=== PATIENT | female | born 1985 | race Asian ===

== ENCOUNTER 2019-10-05 21:53 | Outpatient (CLI) | payer OTHER ==
--- NOTE | 2019-10-05 22:56 | IPNPDOC ---
Text Note Date of Service The patient was seen on 10/05/19. NOTE Patient is a 34 yo G1 @ 40wks gestation presents with concern for contractions. denies lof/vb. +FM vitals: normal NAD abd: gravid, soft, nt, cephalic by jimmy's ce: 1cm (per nursing check) fht: 135/mod meir/pos accel/no decel toco: ctx q 7mins a/p patient in early labor. return precautions given. f/u with regular clinic otherwise. DO ANDREW Alfaro LUAT N. DO Oct 05, 2019 22:56
[2019-10-06] MEDS ORDERED: PRENTAB9 PO (15:16)
[2019-10-06] MEDS ORDERED: MAPA500T2 PO (15:16)
[2019-10-07] MEDS ORDERED: DOCU100C16 PO (17:50)
== END 2019-10-06 00:52 | disposition home or self-care (01) ==
LOC: M LDO 21:53
PROVIDERS: ATTEND Obstetrics & Gynecology
DX: O62.0 Primary inadequate contractions (principal); Z3A.40 40 weeks gestation of pregnancy; Z79.899 Other long term (current) drug therapy

== ENCOUNTER 2019-10-06 00:54 | Outpatient (CLI) | payer OTHER ==
[~2019-10-06] VITALS: Ht 162.6 cm; Wt 64.0 kg
[2019-10-06] MEDS ORDERED: PROMETHAZINE INJ 25 MG/ML VIAL (J2550) IV ONE (01:00)
[2019-10-06] MEDS ORDERED: LR 1,000 ML IV ONE (01:00)
[2019-10-06] MEDS ORDERED: LR 1,000 ML IV SCH (01:00)
[2019-10-06] MEDS ORDERED: MORPHINE 10 MG/ML 1ML VIAL (J2270) IV ONE (01:00)
[2019-10-06] MEDS ORDERED: MORPHINE 10 MG/ML 1ML VIAL (J2270) IM ONE (01:00)
--- NOTE | 2019-10-06 01:24 | IPNPDOC ---
Text Note Date of Service The patient was seen on 10/06/19. NOTE patient is a 34 yo G1 @ 40+1wks gestation presents with painful contractions. she was seen earlier and discharge. Her contractions continues to be painful. vitals: normal NAD abd: gravid, soft, nt fht: 135/mod meir/pos accel/no decel toco: ctx q 5-6mins ce: unchanged per nursing check a/p patient not in labor. patient offered iv pain med therapy then recheck. patient desires to have pain medication. Give Morphine and phenargan. recheck once patient wakes up. LYRIC MORALES DO Oct 06, 2019 01:24
--- NOTE | 2019-10-06 06:33 | IPNPDOC ---
Text Note Date of Service The patient was seen on 10/06/19. NOTE patient received morphine, phenergan and IV fluids. She rested. Her contractions are not as painful as before vitals: normal nad fht: 125/mod meir/pos accel/no decel toco: ctx q 7-8mins ce: 3cm per nursing check a/p patient in early labor. Discussed with patient s/s of active labor and when to come back. d/c home. Angelina, VS,Eden, I+O VS, Eden, I+O Vital Signs Date Time Temp Pulse Resp B/P (MAP) Pulse Ox O2 Delivery O2 Flow Rate FiO2 10/06/19 01:48 18 LYRIC MORALES DO Oct 06, 2019 06:33
[2019-10-06] MEDS ORDERED: PRENTAB9 PO (15:16)
[2019-10-06] MEDS ORDERED: MAPA500T2 PO ×2 (15:16)
[2019-10-07] MEDS ORDERED: DOCU100C16 PO (17:50)
== END 2019-10-06 06:40 | disposition home or self-care (01) ==
LOC: M LDO 00:54
PROVIDERS: ATTEND Obstetrics & Gynecology
DX: O62.0 Primary inadequate contractions (principal); Z3A.40 40 weeks gestation of pregnancy
CPT/HCPCS: J2270 ×2

== ENCOUNTER 2019-10-06 14:24 | Inpatient (IN) | payer OTHER ==
[~2019-10-06] VITALS: Ht 162.6 cm; Wt 96.5 kg
[2019-10-06] VITALS (8 sets, daily range): BP systolic 104–190; BP diastolic 64–102
[2019-10-06] MEDS ORDERED: MAPA500T2 PO ×2 (15:16)
[2019-10-06] MEDS ORDERED: PRENTAB9 PO (15:16)
[2019-10-06] MEDS ORDERED: LACTATED RINGER'S 1000 ML IV STA (15:34)
[2019-10-06] MEDS ORDERED: OXYTOCIN DRIP 30 UNITS in IV 1 EA IV SCH ×2 (15:45→21:43)
[2019-10-06] MEDS ORDERED: LR 1,000 ML IV SCH (15:45)
--- NOTE | 2019-10-06 16:08 | HPEPDOC ---
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 pertinent history Past Medical History Medical History denies Surgical History: Denies/None Family History Significant Family History: No pertinent family hx Social History Marital Status: * Smoker: non-smoker Alcohol: Denies Drugs: denies Abuse Violence Screening Have you been hit/kicked/slapp: No Have you been sexually assault: No Imunizations Tdap status: current Influenza Status: current Allergies Coded Allergies: No Known Allergies (Unverified , 10/06/19) Medications Scheduled No.137/Iron/Folic Acd ( Vitamin Tablet) 1 Each Tablet, 1 TAB PO DAILY Miscellaneous Medications Acetaminophen (Mapap) 500 Mg Tablet, 1,000 MG PO Physical Examination Physical Examination GENERAL: Alert and oriented times three. BREAST: . ABDOMEN: Gravid and non-tender to touch. FETUS: Is vertex (VTX) by sterile vaginal examination (SVE), fetus is vertex (VTX) by Loco. HEART RATE: Regular rate and rhythm. LUNGS: Clear to auscultation (CTA). EXTREMITIES: No edema/erythema/tenderness EFW: 3600gm speculum exam: bloody show, clear fluid in vault, grossly ruptured ce: 4/80/0, forebag palpated. Laboratory Data 24H LABS Laboratory Tests 2 10/06/19 15:39: Serology Scanned Report Hepatitis B Testing Pertinent Laboratoy Data Blood Type: B+ RBC Antibody Screen: Negative HIV: Negative Hepatitis B: Negative Rapid Plasma Reagin: Nonreactive Rubella: Immune Chlamydia/Gonorrhea: Negative Group B Streptococcus: Negative Glucose Tolerance Test: 92 Anatomy Ultrasound Ultrasound Date: Oct 06, 2019 Placenta Location: Posterior Normal Anatomy: Yes Placenta Previa: No Vaginal Examination Dilation: 4 cm Effacement: 80% Station: -1, 0 Cervical Consistency: Soft Cervical Position: Middle Presentation: Cephalic presentation Assessment Heart Rate (FHR): 140 Variability: Moderate Accelerations: Positive Decelerations: None Tocometer Contractions: Yes Frequency: every 3-7 min. Assessment/Plan Assessment Patient is a 34yo G1 @ 40+1wks gestation with SROM. Admit to L&D. Discussed with patient possible need for augmentation with pitocin as needed. Reviewed with patient external and internal monitoring as indicated. Risk of infection needing iv antibiotics, bleeding needing blood transfusion, emergent section for and maternal indication, use of forceps or vacuum to assist in vaginal delivery in an emergency and associated risks, and episiotomy explained. Plan Admit and orient. 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 Diet: clear start pit as needed for augmentation of labor Group B Streptococcus (GBS) negative Labs and intravenous (IV) per unit protocol. Counseled on Pitocin and induction of labor (IOL). pelvis adequate for trial of labor anesthesia consult LYRIC MORALES DO Oct 06, 2019 15:52
[2019-10-06] MEDS ORDERED: PROMETHAZINE INJ 25 MG/ML VIAL (J2550) IV ONE (16:15)
[2019-10-06] MEDS ORDERED: MORPHINE 10 MG/ML 1ML VIAL (J2270) IV ONE (16:15)
[2019-10-06] MEDS ORDERED: MORPHINE 10 MG/ML 1ML VIAL (J2270) IM ONE (16:15)
[2019-10-06 16:36] LABS: HEMATOCRIT 38.4 % (36.0-47.0); HEMOGLOBIN 12.6 g/dl (12.0-15.5); MEAN CORPUSCULAR HEMOGLOBIN 29.7 pg (27.0-33.0); MEAN CORPUSCULAR HGB CONC 32.8 g/dl (32.0-36.5); MEAN CORPUSCULAR VOLUME 90.6 fl (80.0-96.0); PLATELET COUNT, AUTOMATED 187 10^3/uL (150-450); RED BLOOD COUNT 4.24 10^6/uL (4.00-5.40); WHITE BLOOD COUNT 12.7 10^3/uL (4.0-10.0)
[2019-10-06] MEDS ORDERED: FENTANYL 2MCG/ML ROPIVACAINE 0.2% IN 0.9% NACL 100ML IVBAG As Ordered ONE (18:47)
[2019-10-06] MEDS ORDERED: ONDANSETRON 4MG/2ML VIAL (J2405) IV PRN (19:19)
[2019-10-06] MEDS ORDERED: REFRIGERATOR IV KEYS XX PRN (19:19)
[2019-10-06] MEDS ORDERED: ePHEDrine SULFATE 25 MG/5 ML(5MG/ML) SYRINGE IV PRN (19:19)
[2019-10-06] MEDS ORDERED: EPIDURAL COMMENT XX SCH (19:19)
[2019-10-06] MEDS ORDERED: NALOXONE INJ 0.4 MG/1 ML VIAL (J2310) IV PRN (19:19)
[2019-10-06] MEDS ORDERED: diphenhydrAMINE INJ 50MG/ML VIAL (J1200) IV PRN (19:19)
[2019-10-06] MEDS ORDERED: FENTANYL/ROPIVACAINE/NACL BAG 100 ML EPIDURAL SCH (19:19)
[2019-10-06] MEDS ORDERED: EPIDURAL/PCA KEYS XX PRN (19:19)
--- NOTE | 2019-10-06 20:43 | IPNPDOC ---
Text Note Date of Service The patient was seen on 10/06/19. NOTE patient with epidural. feeling pressure vitals: normal fht: 135/mod meir/no accel/early decels toco: ctx q 2mins ce: c/c/+2, LOP a/p patient in second stage of labor. attempt to rotate baby head to OA position unsuccessful. continue with pushing. reassess in 1 hr. Angelina, VS,Eden, I+O VS, Fishbone, I+O Laboratory Tests 10/06/19 16:23 Vital Signs Date Time Temp Pulse Resp B/P (MAP) Pulse Ox O2 Delivery O2 Flow Rate FiO2 10/06/19 18:36 81 122/77 (92) 10/06/19 16:44 18 10/06/19 14:41 96.9 LYRIC MORALES DO Oct 06, 2019 20:43
[2019-10-06] MEDS ORDERED: ACETAMINOPHEN TAB 650MG DOSE (2X325MG) PO PRN (21:45)
[2019-10-06] MEDS ORDERED: RHOGAM 300 MCG (1500 IU) INJ (J2790) IM SCH (21:45)
[2019-10-06] MEDS ORDERED: MEASLES,MUMPS,RUBELLA VACCINE INJ (MMR-II) (90707) SC SCH (21:45)
[2019-10-06] MEDS ORDERED: DOCUSATE SODIUM 100 MG CAP PO PRN (21:45)
[2019-10-06] MEDS ORDERED: DIBUCAINE 1% OINTMENT 30GM TOP PRN (21:45)
--- NOTE | 2019-10-06 21:54 | DNPDOC ---
[facility] Delivery Note Delivery Note DATE OF DELIVERY: 06/10/2019 PREDELIVERY DIAGNOSIS: 40+1/7 weeks' gestation and labor. POST DELIVERY DIAGNOSIS: Delivered. PROCEDURE: Spontaneous vaginal delivery UPWARD BOUND DIRECTOR: Dr. Mita Alfaro DO ANESTHESIA: epidural ESTIMATED BLOOD LOSS: 300 mL. FINDINGS: 7 lbs 9oz, 3440gm, male infant, Score 7/9, nuchal cord times and bandolero cord x 1, compound right hand DELIVERY SUMMARY: With good maternal effort baby delivered OA, restituted ROT, loose nuchal cord reduced. Right compound hand delivered, then anterior shoulder, posterior shoulder delivered. body followed with ease. baby placed on maternal abdomen. Cord allowed to stop pulsating. Cord clamped x 2 and cut by mother of baby. Pitocin bolus started. Cord blood collected per routine. Placenta delivered spontaneously. Inspection revealed left sulcal tear extending to second degree perineal tear. Lidocaine plain used at perineum due to inadequate coverage with epidural. laceration repaired with 2-0 and 3-0 vicryl. baby and mother bonding when I left the room. EBL 300cc. DO ANDREW Alfaro LUAT N. DO Oct 06, 2019 21:54
[2019-10-06] MEDS: IBUPROFEN 600 MG TAB PO PRN (22:17)
[2019-10-07] MEDS: IBUPROFEN 600 MG TAB PO PRN ×2 (05:32→16:04)
[2019-10-07 06:00] VITALS: BP 101/58
--- NOTE | 2019-10-07 06:35 | IPNPDOC ---
Progress Note Date of Service: Oct 07, 2019 Day#: 1 Progress Note SUBJECT: patient is a 34 yo s/p , ppd #1. She has been ambulating, voiding spontaneously without issue and tolerating regular diet. Breast feeding without issue. Reports lochia is light. spouse is deployed. undecided on contraceptive at this point. OBJECTIVE: VITAL SIGNS: Within normal limits, afebrile. Alert and oriented times three. Abdomen: Fundus firm at U-2. Soft, NTTP. LE: neg edema/erythema/tenderness A/P ppd #1, doing well. encourage bf and ambulating. routine ppc. anticipate d/c ppd #2. VS, I&O, 24H, Fishbone Vital Signs/I&O Vital Signs Date Time Temp Pulse Resp B/P (MAP) Pulse Ox O2 Delivery O2 Flow Rate FiO2 10/07/19 06:00 97.2 75 20 101/58 (72) 97 Room Air I&O- Last 24 Hours up to 6 AM 10/07/19 06:00 Intake Total 390 ml Output Total 1400 ml Balance -1010 ml Laboratory Data 24H LABS Laboratory Tests 2 10/06/19 15:39: Serology Scanned Report Hepatitis B Testing 10/06/19 16:23: Nucleated Red Blood Cells % (auto) 0.0 CBC/BMP Laboratory Tests 10/06/19 16:23 LYRIC MORALES DO Oct 07, 2019 06:35
[2019-10-07] MEDS: PRENATAL VITAMINS CHEWABLE TABLET PO SCH (09:19)
[2019-10-07] MEDS ORDERED: DOCU100C16 PO (17:50)
[2019-10-07 18:10] VITALS: BP 101/57
[2019-10-08 05:58] VITALS: BP 110/67
--- NOTE | 2019-10-08 07:13 | IPNPDOC ---
Progress Note Date of Service: Oct 08, 2019 Day#: 2 Progress Note SUBJECT: Patient is a 34-year-old 1 now Para 1 status post uncomplicated spontaneous vaginal delivery with post vaginal left sulcus and 2nd degree perineal laceration and repair, doing well day # 2. She has been ambulating, voiding spontaneously without issue and tolerating regular diet. Breast feeding without issue. Reports lochia is like a normal period. Patient is ambulating well. Reports some cramping with . Denies any pain but mild headache in morning. OBJECTIVE: VITAL SIGNS: Within normal limits, afebrile. Alert and oriented times three. Breast without erythema and nontender. Breath sounds clear to auscultation. Heart rate: Regular rate and rhythm, no murmurs, rubs or gallops. Abdomen: Fundus firm at U-2. Soft, NTTP. Perineum intact and Minimal lochia. ASSESSMENT: Patient is a 34-year-old 1 now Para 1 status post uncomplicated spontaneous vaginal delivery with post vaginal left sulcus and 2nd degree perineal laceration and repair, doing well day # 2. Vitals within normal limits, afebrile, hemodynamically stable with no evidence of infection. PLAN: 1. Discharge to home today. 2. Tylenol for pain and headache which was explained. 3. Encourage breast feeding and ambulation. 4. Routine PP visit in 6 weeks in clinic. 5. Discussed return precautions at length. VS, I&O, 24H, Fishbone Vital Signs/I&O Vital Signs Date Time Temp Pulse Resp B/P (MAP) Pulse Ox O2 Delivery O2 Flow Rate FiO2 10/07/19 06:00 97.2 75 20 101/58 (72) 97 Room Air I&O- Last 24 Hours up to 6 AM 10/07/19 06:00 Intake Total 390 ml Output Total 1400 ml Balance -1010 ml Arabella Miller MD Oct 07, 2019 17:47
--- NOTE | 2019-10-08 07:13 | DS.PDOC ---
Discharge Summary General Date of Admission Oct 06, 2019 at 15:32 Date of Discharge 10/08/2019 Discharge Summary PROCEDURES PERFORMED DURING STAY: None. ADMITTING DIAGNOSES: 1. Term 2. SROM DISCHARGE DIAGNOSES: 1. Term 2. SROM COMPLICATIONS/CHIEF COMPLAINT: SROM. HISTORY OF PRESENT ILLNESS: see H&P HOSPITAL COURSE: Patient admitted for SROM with uncomplicated . uncomplicated. Bleeding like menses. Tolerating diet. Passing flatus. Able to ambulate. Pain tolerable with pain medications. Urinating without difficulty. DISCHARGE MEDICATIONS: Please see below. ALLERGIES: Please see below. PHYSICAL EXAMINATION ON DISCHARGE: VITAL SIGNS: Please see below. GENERAL: No acute distress HEENT: MMM BREAST: Nontender, no erythema CARDIOVASCULAR EXAMINATION: RRR RESPIRATORY EXAMINATION: Bilaterally clear ABDOMINAL EXAMINATION: Soft, appropriate tenderness, nondistended, fundus -2 EXTREMITIES: no edema, nontender LABORATORY DATA: Please see below. IMAGING: none PROGNOSIS: Good ACTIVITY: Pelvic rest. DIET: Regular DISCHARGE PLAN: Home DISPOSITION: . DISCHARGE INSTRUCTIONS: 1. See attached. ITEMS TO FOLLOWUP ON ON OUTPATIENT: 1. 6wks in clinic. DISCHARGE CONDITION: Stable. TIME SPENT ON DISCHARGE: Greater than 10 minutes Vital Signs/I&Os Vital Signs Date Time Temp Pulse Resp B/P (MAP) Pulse Ox O2 Delivery O2 Flow Rate FiO2 10/07/19 06:00 97.2 75 20 101/58 (72) 97 Room Air I&O- Last 24 Hours up to 6 AM 10/07/19 06:00 Intake Total 390 ml Output Total 1400 ml Balance -1010 ml Discharge Medications Scheduled No.137/Iron/Folic Acd ( Vitamin Tablet) 1 Each Tablet, 1 TAB PO DAILY, (Reported) Scheduled PRN Docusate Sodium (Docusate Sodium) 100 Mg Capsule, 100 MG PO QHSP PRN for CONSTIPATION Miscellaneous Medications Acetaminophen (Mapap) 500 Mg Tablet, 1,000 MG PO, (Reported) Allergies Coded Allergies: No Known Allergies (Unverified , 10/06/19) Arabella Miller MD Oct 07, 2019 17:50
[2019-10-08] MEDS: PRENATAL VITAMINS CHEWABLE TABLET PO SCH (08:33)
[2019-10-08] MEDS: IBUPROFEN 600 MG TAB PO PRN (08:33)
== END 2019-10-08 11:20 | disposition home or self-care (01) | DRG 807 ==
LOC: M LDO 14:24 → M LDI 15:32 → M OBS 23:13
PROVIDERS: ADMIT Obstetrics & Gynecology; ATTEND Obstetrics & Gynecology
PROC: 10E0XZZ Delivery of Products of Conception, External Approach (ICD-10-PCS; principal; 2019-10-06)
PROC: 0KQM0ZZ Repair Perineum Muscle, Open Approach (ICD-10-PCS; 2019-10-06)
PROC: 0UQGXZZ Repair Vagina, External Approach (ICD-10-PCS; 2019-10-06)
DX: O48.0 Post-term pregnancy (principal); Z37.0 Single live birth; Z3A.40 40 weeks gestation of pregnancy; O69.81X0 Labor and delivery complicated by cord around neck, without compression, not applicable or unspecified; O69.82X0 Labor and delivery complicated by other cord entanglement, without compression, not applicable or unspecified; O64.5XX0 Obstructed labor due to compound presentation, not applicable or unspecified; O70.1 Second degree perineal laceration during delivery; O71.89 Other specified obstetric trauma